=== PATIENT | female | born 1950 | race Caucasian/White ===

== ENCOUNTER 2018-04-12 10:32 | Outpatient (CLI) | payer OTHER ==
[2018-04-12] MEDS ORDERED: COZAAR100 MG PO (13:48)
[2018-04-12] MEDS ORDERED: LABETALOL HCL300 MG PO (13:48)
[2018-04-20] MEDS ORDERED: ULTRACET PO (08:37)
[2018-04-20] MEDS ORDERED: COLACE100 MG PO (08:37)
== END 2018-04-12 10:40 | disposition home or self-care (01) ==
LOC: EKG 10:32
DX: Z01.810 Encounter for preprocedural cardiovascular examination (principal); C54.1 Malignant neoplasm of endometrium; N39.0 Urinary tract infection, site not specified; D64.89 Other specified anemias